=== PATIENT | female | born 1950 ===

== ENCOUNTER → 2018-06-08 21:02 | Outpatient (REF) | payer MEDICARE, OTHER, SELFPAY ==
[2018-06-08 21:05] LABS: Bacteria Urine None Seen; RBC Urine None Seen (0-5/HPF); WBC Urine None Seen (0-5/HPF)
[2018-06-08 21:20] LABS: Appearance Urine UA CLEAR; Bilirubin Urine UA NEGATIVE (NEGATIVE); Color Urine UA YELLOW; Glucose Urine UA NEGATIVE (Negative); Ketones Urine UA TRACE (NEGATIVE); Leukocyte Esterase Urine UA NEGATIVE (NEGATIVE); Nitrite Urine UA NEGATIVE (Negative); Occult Blood Urine UA NEGATIVE (Negative); Protein Urine UA NEGATIVE (Negative); Urobilinogen Urine UA 0.2 E.U./dL (0.2)
[2018-06-08 21:31] LABS: Add Manual Diff / Slide Review NO; Basophils Absolute Auto 0 /uL (0-100); Basophils Percent Auto 0.6 % (0-2); Culture Indicated Urine Cult Not Indicated; Eosinophils Absolute Auto 100 /uL (0-450); Eosinophils Percent Auto 0.9 % (2-4); Hematocrit 49.4 % (36-46); Hemoglobin 16.6 g/dL (12.0-16.0); Lymphocytes Absolute Auto 1500 /uL (1100-4500); Mean Corpuscular HGB Conc 33.6 % (30-36); Mean Corpuscular Hemoglobin 29.8 PG (26-34); Mean Corpuscular Volume 88.6 fL (80-100); Monocytes Absolute Auto 400 /uL (0-900); Monocytes Percent Auto 6.1 % (3-14); Mucus Urine 1+ (Negative); Neutrophils Absolute Auto 4200 /uL (1500-7000); Neutrophils Percent Auto 68.4 % (50-75); Platelet Count 239 X10^3/uL (150-400); Red Blood Cell Count 5.58 X10^6/uL (4.0-5.2); Red Cell Distribution Width 13.6 % (11.6-14.8); Squamous Epithelial Cell Urine 0-1 /HPF; White Blood Cell Count 6.1 X10^3/uL (4.5-11.0)
[2018-06-08 21:34] LABS: Alanine Aminotransferase 46 IU/L (9-52); Albumin 4.7 g/dL (3.5-5.0); Albumin Globulin Ratio 1.3 (1.0-2.8); Alkaline Phosphatase 78 U/L (38-126); Aspartate Aminotransferase 32 IU/L (14-36); BUN Creatinine Ratio 17.8 (6-22); Bilirubin Total 2.1 mg/dL (0.2-1.3); Blood Urea Nitrogen 16 mg/dL (7-17); Calcium 9.7 mg/dL (8.4-10.2); Carbon Dioxide 28 mmol/L (22-32); Chloride 101 mmol/L (98-107); Cholesterol 214 mg/dL (140-199); Estimated Glomerular Filt Rate > 60.0 mL/min (>60); Globulin 3.5 g/dL (1.7-4.1); Glucose 86 mg/dL (80-110); HDL Cholesterol 43 mg/dL (40-60); HEMOLYSIS < 15 (0-50); LDL Cholesterol Calculated 155 mg/dL (<100); Potassium 4.8 mmol/L (3.4-5.1); Sodium 140 mmol/L (137-145); Total Protein 8.2 g/dL (6.3-8.2); Triglycerides 81 mg/dL (35-150)
[2018-06-08 22:07] LABS: TSH w/ Reflex to FT4 1.11 uIU/mL (0.47-4.68)
== END ==
LOC: LAB 21:02
PROVIDERS: Visit Provider Family Medicine
DX: H93.12 Tinnitus, left ear (principal); Z13.89 Encounter for screening for other disorder; L21.0 Seborrhea capitis; D40.0 Neoplasm of uncertain behavior of prostate; Z00.01 Encounter for general adult medical examination with abnormal findings
CPT/HCPCS: 36415; 80053; 80061; 81001; 82728; 84443; 85025

== ENCOUNTER → 2018-06-23 18:49 | Outpatient (REF) | payer MEDICARE, OTHER, SELFPAY ==
[2018-06-27 15:43] LABS: PSA Total 2.11 ng/mL (< 4.01)
== END ==
LOC: LAB 18:49
PROVIDERS: Visit Provider Family Medicine
DX: D40.0 Neoplasm of uncertain behavior of prostate (principal); Z13.89 Encounter for screening for other disorder
CPT/HCPCS: 36415; 84153; 84154